=== PATIENT | male | born 1990 | race Caucasian/White ===

== ENCOUNTER 2016-06-13 20:24 | Emergency (ER) | payer OTHER ==
[~2016-06-13] VITALS: Ht 185.4 cm; Wt 115.3 kg
[2016-06-13] MEDS ORDERED: MOTRIN800 MG PO (22:06)
[2016-06-13 22:39] VITALS: BP 157/90
== END 2016-06-13 22:41 | disposition home or self-care (01) ==
LOC: EME 20:24
DX: S86.912A Strain of unspecified muscle(s) and tendon(s) at lower leg level, left leg, initial encounter (principal); W51.XXXA Accidental striking against or bumped into by another person, initial encounter; Y93.67 Activity, basketball
CPT/HCPCS: 73564; 99281; 99284